=== PATIENT | male | born 1960 ===

== ENCOUNTER 2021-07-07 06:31 | Outpatient (REF) | payer OTHER, SELFPAY ==
[2021-07-07 07:06] LABS: Basophils Percent Auto 0.4 % (0-2); Eosinophils Percent Auto 20.5 % (0-4); Hematocrit 38.7 % (42.0-52.0); Hemoglobin 12.1 g/dl (14.0-18.0); Imm Gran Abs Auto 0.01 X10*3/uL (0.00-0.03); Imm Gran Pct Auto 0.2 % (0.0-0.4); Lymphocytes Absolute Auto 1.5 X10*3/uL (1.2-4.9); Lymphocytes Percent Auto 31.7 % (20-40); MANUAL DIFF FLAG SCAN; Mean Corpuscular HGB Conc 31.3 g/dl (31.0-36.0); Mean Corpuscular Hemoglobin 25.9 pg (27.0-33.0); Mean Corpuscular Volume 82.9 fL (80.0-98.0); Mean Platelet Volume 9.1 fL (9.4-12.4); Monocytes Absolute Auto 0.6 X10*3/uL (0.1-1.2); Monocytes Percent Auto 11.6 % (2-11); Neutrophils Absolute Auto 1.7 x10*3/uL (2.0-8.3); Neutrophils Percent Auto 35.6 % (45-73); Platelet Count 207 X10*3/uL (160-400); Red Blood Count 4.67 X10*6/uL (4.60-5.80); Red Cell Distribution Width 15.4 % (11.0-16.0); SCAN SMEAR FLAG 1; White Blood Count 4.8 X10*3/uL (4.8-10.8)
[2021-07-07 07:31] LABS: Alanine Aminotransferase 37 U/L (0-40); Albumin Level 3.3 g/dL (3.5-5.0); Alkaline Phosphatase 118 U/L (39-117); Anion Gap 15 (12-20); Aspartate Amino Transferase 43 U/L (5-37); Bilirubin Total 0.5 mg/dL (0.0-1.0); Blood Urea Nitrogen 6 mg/dL (9-16); Calcium 8.3 mg/dL (8.4-10.2); Carbon Dioxide 21 mmol/L (22-29); Chloride 105 mmol/L (96-108); Estimated Glomerular Filt Rate > 60; Glucose Random 71 mg/dL (60-115); Potassium 3.2 mmol/L (3.3-5.1); Sodium 138 mmol/L (135-145); Total Protein 5.9 g/dL (6.5-8.0)
[2021-07-07 07:49] LABS: SLIDE REVIEW VERIFIED
== END 2021-07-07 06:32 | disposition home or self-care (01) ==
LOC: HO.MMNH1L 06:31
PROVIDERS: Visit Provider Family Medicine
DX: Z00.00 Encounter for general adult medical examination without abnormal findings (principal)
CPT/HCPCS: 36415; 80053; 85025

== ENCOUNTER 2021-07-14 01:35 | Outpatient (REF) | payer OTHER, SELFPAY ==
[2021-07-14 07:39] LABS: Anion Gap 13 (12-20); Blood Urea Nitrogen 9 mg/dL (9-16); Calcium 8.5 mg/dL (8.4-10.2); Carbon Dioxide 30 mmol/L (22-29); Chloride 100 mmol/L (96-108); Estimated Glomerular Filt Rate > 60; Glucose Random 65 mg/dL (60-115); Potassium 3.9 mmol/L (3.3-5.1); Sodium 139 mmol/L (135-145)
[2021-07-14 10:12] LABS: Hematocrit 33.9 % (42.0-52.0); Hemoglobin 10.7 g/dl (14.0-18.0); Mean Corpuscular HGB Conc 31.6 g/dl (31.0-36.0); Mean Corpuscular Hemoglobin 26.6 pg (27.0-33.0); Mean Corpuscular Volume 84.1 fL (80.0-98.0); Platelet Count 216 X10*3/uL (160-400); Red Blood Count 4.03 X10*6/uL (4.60-5.80)
== END 2021-07-14 01:36 | disposition home or self-care (01) ==
LOC: HO.MMNH1L 01:35
PROVIDERS: Visit Provider Family Medicine
DX: I48.91 Unspecified atrial fibrillation (principal); R41.82 Altered mental status, unspecified
CPT/HCPCS: 36415; 80048; 85027

== ENCOUNTER 2021-07-21 00:59 | Outpatient (REF) | payer OTHER, SELFPAY ==
[2021-07-21 07:13] LABS: Hematocrit 37.6 % (42.0-52.0); Hemoglobin 11.8 g/dl (14.0-18.0); Mean Corpuscular HGB Conc 31.4 g/dl (31.0-36.0); Mean Corpuscular Hemoglobin 25.9 pg (27.0-33.0); Mean Corpuscular Volume 82.6 fL (80.0-98.0); Mean Platelet Volume 9.3 fL (9.4-12.4); Platelet Count 219 X10*3/uL (160-400); Red Blood Count 4.55 X10*6/uL (4.60-5.80); Red Cell Distribution Width 14.6 % (11.0-16.0); White Blood Count 4.9 X10*3/uL (4.8-10.8)
[2021-07-21 07:42] LABS: Anion Gap 14 (12-20); Blood Urea Nitrogen 9 mg/dL (9-16); Calcium 8.7 mg/dL (8.4-10.2); Carbon Dioxide 24 mmol/L (22-29); Chloride 102 mmol/L (96-108); Estimated Glomerular Filt Rate > 60; Glucose Random 63 mg/dL (60-115); Sodium 136 mmol/L (135-145)
== END 2021-07-21 01:00 | disposition home or self-care (01) ==
LOC: HO.MMNH1L 00:59
PROVIDERS: Visit Provider Family Medicine
DX: I48.91 Unspecified atrial fibrillation (principal); R41.82 Altered mental status, unspecified
CPT/HCPCS: 36415; 80048; 85027

== ENCOUNTER 2021-07-28 00:32 | Outpatient (REF) | payer SELFPAY | END 2021-07-28 00:33 | disposition home or self-care (01) | LOC: HO.MMNH1L 00:32 | PROVIDERS: Visit Provider Family Medicine | DX: Z13.89 Encounter for screening for other disorder (principal) ==

== ENCOUNTER 2021-08-04 01:03 | Outpatient (REF) | payer SELFPAY | END 2021-08-04 01:04 | disposition home or self-care (01) | LOC: HO.MMNH1L 01:03 | PROVIDERS: Visit Provider Family Medicine | DX: Z13.89 Encounter for screening for other disorder (principal) ==